=== PATIENT | male | born 1975 | race Caucasian/White ===

== ENCOUNTER 2018-10-19 16:41 | Outpatient (CLI) | payer OTHER | END 2018-10-19 16:42 | disposition critical access hospital (66) | LOC: EMS 16:41 | PROVIDERS: ATTEND Surgery | DX: M54.5 Low back pain (principal); V89.2XXA Person injured in unspecified motor-vehicle accident, traffic, initial encounter; Y92.413 State road as the place of occurrence of the external cause | CPT/HCPCS: A0425; A0429 ==

== ENCOUNTER 2018-10-19 17:13 | Emergency (ER) | payer OTHER ==
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
[2018-10-19] MEDS ORDERED: HYDROcod/ACETAM 5/325 MG TABLET PO STA (17:55)
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
[2018-10-19] MEDS ORDERED: HYDROcod/ACET 5/325 Prepack 4 PO STA (19:27)
[2018-10-19 19:45] VITALS: BP 151/87
== END 2018-10-19 19:56 | disposition home or self-care (01) ==
LOC: EDUNIT# → ED 17:13
DX: S32.019A Unspecified fracture of first lumbar vertebra, initial encounter for closed fracture (principal); V59.40XA Driver of pick-up truck or van injured in collision with unspecified motor vehicles in traffic accident, initial encounter; R03.0 Elevated blood-pressure reading, without diagnosis of hypertension
CPT/HCPCS: 72100; 72125; 72128; 72131; 99283; A9270

== ENCOUNTER 2019-11-27 14:03 | Outpatient (CLI) | payer OTHER ==
[2019-11-27] MEDS ORDERED: IOVERSOL 320 100 ML VIAL IVP ONE ×2 (14:15→16:28)
[2019-11-27] MEDS ORDERED: IOVERSOL 320 50 ML VIAL ONE (14:15)
[2019-11-27] MEDS ORDERED: IOVERSOL 320 50 ML VIAL PO ONE (16:28)
--- NOTE | 2019-11-28 10:22 | CT Report ---
Reason: HEPATOMEGALY, JAUNDICE Procedure Date: 11/27/2019 Accession Number: [id number] / [id number] Procedure: CT - Abdomen/Pelvis W CPT Code: Final Report FULL RESULT: EXAM: CT ABDOMEN AND PELVIS EXAM DATE: 11/27/2019 03:50 PM. CLINICAL HISTORY: Hepatomegaly, jaundice. COMPARISONS: None. TECHNIQUE: Routine helical CT imaging was performed through the abdomen and pelvis. IV contrast: 100 mL OPTIRAY 320. Enteric contrast: Yes. Reconstructions: Coronal and sagittal. In accordance with CT protocol optimization, one or more of the following dose reduction techniques were utilized for this exam: automated exposure control, adjustment of mA and/or KV based on patient size, or use of iterative reconstructive technique. FINDINGS: Lung Bases: Lung bases appear clear. Moderate cardiomegaly. Liver: Enlarged, measuring 24.4 cm in length. Lobulated contour. Timing of the IV bolus is suboptimal. There is a very subtle mass at the anterior inferior right hepatic lobe indicated, measuring up to 3.9 x 2.5 x 7.4 cm. Series 3 image 49 and series 5 image 18. No discrete hepatic mass is detected elsewhere. The liver could be further evaluated by MRI. The portal vein is patent. There has been revascularization of the umbilical vein. Gallbladder/Bile Ducts: Significant circumferential mural thickening of the nondilated gallbladder wall. No intrahepatic or extrahepatic biliary ductal dilatation detected. Spleen: Enlarged, measuring 15.7 cm in length. Pancreas: No focal masses or ductal dilatation. Adrenal Glands: Normal. Kidneys: Normal. No masses or hydronephrosis. Peritoneal Cavity/Bowel: Normal. No free fluid, free air or adenopathy. No masses or acute inflammatory process. The appendix is well visualized and normal. Pelvic Organs: Normal. The bladder and visualized pelvic organs are within normal limits. Vasculature: Recannulization of the umbilical vein. Development of varices anterior and medial to the spleen. No gastric varices identified. Varix formation also seen just caudal to the gallbladder fossa. Bones: No discrete lytic or blastic lesions detected. There is a grade 1 compression fracture at the superior endplate of L1, possibly nonacute. Other: None. IMPRESSION: 1. Suspected mass at the inferior tip of the liver not well demarcated on current study due to the timing of the IV bolus. Significant mural thickening of the gallbladder. Enlarged and lobulated liver and splenomegaly. Varix formation and recannulization of the umbilical vein consistent with cirrhotic changes in developing portal venous hypertension. No ascites is identified on current study. Follow-up abdominal MRI with MRCP may be helpful for further evaluation. AHSAN
== END 2019-11-27 14:04 | disposition home or self-care (01) ==
LOC: DI 14:03
PROVIDERS: ATTEND Physician Assistant
DX: R16.2 Hepatomegaly with splenomegaly, not elsewhere classified (principal); R17 Unspecified jaundice
CPT/HCPCS: 74177; Q9967

== ENCOUNTER 2020-07-20 12:36 | Outpatient (CLI) | payer BC ==
--- NOTE | 2020-07-20 17:40 | Ultrasound Report ---
PROCEDURE: Abdomen Complete INDICATIONS: EDEMA,CIRRHOSIS OF LIVER,HEPATOMEGALY,SPLENOMEGALY TECHNIQUE: Real-time scanning was performed of the abdominal and retroperitoneal organs, with image documentatio n. COMPARISON: CT dated 11/27/2019. FINDINGS: Study limited secondary to patient scanning characteristics and excessive overlying bowel gas. Liver: Liver is mildly enlarged in size with heterogeneous, coarse echotexture and nodular liver con tour. There are 2 isoechoic liver masses identified. One is noted in the inferior aspect of the right hepatic lobe measuring 4.2 x 5.9 x 5.1 cm. A second isoechoic mass is noted more posteriorly and inf eriorly within the right hepatic lobe measuring 2.9 x 2.3 x 2.6 cm. Gallbladder: Gallbladder contains nonobstructing gallstones. No gallbladder wall thickening. No peric holecystic fluid. Negative sonographic Khalil's. Biliary ducts: Intrahepatic bile ducts are non-dilated. Extrahepatic bile duct caliber measures 9 m m. Normal is 6-7 mm or less in diameter, or 10 mm or less post-cholecystectomy. Pancreas: Limited visualization of the pancreas secondary to bowel gas. Visualized portions demonstra te mild coarse, heterogeneous echotexture. Spleen: Spleen is enlarged measuring 14.8 cm in the maximum dimension. Kidneys: Kidneys are normal in size and echotexture. Right kidney measures 11.5 cm long; left kidne y measures 11.5 cm long. No hydronephrosis or nephrolithiasis. Incidental note of column of Paco. Simple left renal cyst measuring 1.9 cm. No solid masses. Aorta: Visualized aorta is normal in caliber at less than 3 cm. Iliacs: Not well visualized secondary to bowel gas. IVC: Intrahepatic inferior vena cava is patent. Miscellaneous: Scattered ascites throughout the abdomen. Right pleural effusion. Possible left pleura l effusion. IMPRESSION: 1. Hepatosplenomegaly with findings consistent with cirrhosis. There are 2 right hepatic lobe isoecho ic masses measuring 5.9 cm and 2.9 cm respectively. Further characterization with multiphasic contras t enhanced CT or MRI is recommended using liver mass protocol. 2. Scattered ascites, right pleural effusion, and likely left pleural effusion. 3. Cholelithiasis without sonographic evidence for acute cholecystitis. Reviewed by: Giovanni Sam MD on 07/20/2020 5:38 PM PDT Approved by: Giovanni Sam MD on 07/20/2020 5:38 PM PDT Station ID: [id number]
== END 2020-07-20 12:37 | disposition home or self-care (01) ==
LOC: DI 12:36
PROVIDERS: ATTEND Physician Assistant
DX: R60.1 Generalized edema (principal); K74.60 Unspecified cirrhosis of liver; R16.0 Hepatomegaly, not elsewhere classified; R16.1 Splenomegaly, not elsewhere classified; R18.8 Other ascites; K80.20 Calculus of gallbladder without cholecystitis without obstruction; J90 Pleural effusion, not elsewhere classified
CPT/HCPCS: 76700

== ENCOUNTER 2020-07-24 04:21 | Outpatient (CLI) | payer BC | END 2020-07-24 04:22 | disposition critical access hospital (66) | LOC: EMS 04:21 | PROVIDERS: ATTEND Surgery | DX: R50.9 Fever, unspecified (principal) | CPT/HCPCS: A0425; A0429 ==

== ENCOUNTER 2020-07-24 04:40 | Emergency (ER) | payer BC, OTHER ==
--- NOTE | 2020-07-24 04:56 | ED Physician Documentation ---
PD HPI FEVER - Stated complaint Stated Complaint: FEVER, SHIVERING, SOA - Chief complaint Chief Complaint: Fever - History obtained from History obtained from: Patient, EMS - History of Present Illness Timing - onset: Today Pain level max: 0 Pain level now: 0 Associated symptoms: Chills. No: Rigors, Ear pain, Nasal congestion, Rhinorrhea, Sinus pain, Sore throat, Dry cough, Productive cough, Chest pain, Dyspnea, Abdominal pain, NVD, Urinary symptoms, Rash/skin lesion Similar symptoms before: Has not had sx before Recently seen: Not recently seen - Additional information Additional information: BIBA. Patient says he was leaving work this evening when he developed shaking chills. He says he felt so cold that he called family at home ahead of time to have them turn on the heat, and when he got home he put several blankets on. He continued to feel as if he was so cold that he couldn't get warm and called 911. EMS report that they recorded a PO temperature of 105. 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 Patient denies any symptoms except for as noted above. Review of Systems Constitutional: reports: Fever, Chills. denies: Myalgias, Fatigue, Sweats Eyes: reports: Reviewed and negative Ears: reports: Reviewed and negative Nose: reports: Reviewed and negative Throat: reports: Reviewed and negative Cardiac: reports: Reviewed and negative Respiratory: reports: Reviewed and negative GI: denies: Abdominal Pain, Abdominal Swelling, Nausea, Vomiting, Constipation, Diarrhea : denies: Dysuria, Frequency Skin: denies: Rash Musculoskeletal: denies: Neck pain, Back pain, Joint pain Neurologic: denies: Generalized weakness, Confused, Altered mental status, Headache PD PAST MEDICAL HISTORY - Past Medical History Cardiovascular: None Respiratory: None Endocrine/Autoimmune: None GI: Cirrhosis (patient is unsure if he has been definitely diagnosed with cirrhosis, says work up is ongoing and further testing scheduled for later this month (upper and lower endoscopy)) : None HEENT: None Psych: None Musculoskeletal: Osteoarthritis Derm: None - Past Surgical History Past Surgical History: Yes Ortho: Arthroscopic surgery - Present Medications Home Medications: Ambulatory Orders Medication Instructions Recorded Confirmed Furosemide [Lasix] 07/24/20 - Allergies Allergies/Adverse Reactions: Allergies Allergy/AdvReac Type Severity Reaction Status Date / Time No Known Drug Allergies Allergy Verified 07/24/20 04:54 - Social History Does the pt smoke?: No Smoking Status: Never smoker Does the pt drink ETOH?: Yes Does the pt have substance abuse?: No - Immunizations Immunizations: No immun - POLST Patient has POLST: No PD ED PE NORMAL - Vitals Vital signs reviewed: Yes - General General: Alert and oriented X 3, No acute distress, Well developed/nourished - HEENT HEENT: PERRL, EOMI, Moist mucous membranes, Pharynx benign, Other (icteric sclera) - Neck Neck: Supple, no meningeal sign - Cardiac Cardiac: RRR, No murmur, No gallop, No rub - Respiratory Respiratory: No respiratory distress, Clear bilaterally - Abdomen Abdomen: Soft, Non tender, Non distended - Back Back: No CVA TTP - Derm Derm: Warm and dry, Other (mild/faint jaundice) - Extremities Extremities: Other (BLE edema) - Neuro Neuro: Alert and oriented X 3 Eye Opening: Spontaneous Motor: Obeys Commands Verbal: Oriented GCS Score: 15 Results - Vitals Vitals: Vital Signs - 24 hr 07/24/20 07/24/20 08:00 08:30 Temperature 37.4 C Heart Rate 83 79 Respiratory 20 18 Rate Blood Pressure 95/51 L 93/51 L O2 Saturation 96 97 Oxygen O2 Source Room air - Labs Labs: Microbiology 07/24/20 04:58 Blood Culture - Preliminary Blood NO GROWTH AFTER 1 DAY 07/24/20 06:30 Occult Blood - Final Stool Laboratory Tests 07/24/20 07/24/20 07/24/20 04:55 04:58 04:58 WBC 14.2 H RBC 2.68 L Hgb 7.8 L Hct 25.2 L MCV 94.0 MCH 29.1 MCHC 31.0 L RDW 17.2 H Plt Count 142 MPV 10.0 Neut # (Auto) 12.5 H Lymph # (Auto) 0.6 L Chaves # (Auto) 0.8 Eos # (Auto) 0.2 Baso # (Auto) 0.1 Absolute Nucleated RBC 0.00 Nucleated RBC % 0.0 PT 27.0 H INR 2.6 H APTT 45.3 H Sodium Potassium Chloride Carbon Dioxide Anion Gap BUN Creatinine Estimated GFR (MDRD) Glucose Lactic Acid Calcium Total Bilirubin AST ALT Alkaline Phosphatase B-Natriuretic Peptide Total Protein Albumin Globulin Albumin/Globulin Ratio Lipase Urine Color Urine Clarity Urine pH Ur Specific Clements Urine Protein Urine Glucose (UA) Urine Ketones Urine Occult Blood Urine Nitrite Urine Bilirubin Urine Urobilinogen Ur Leukocyte Esterase Ur Microscopic Review Urine Culture Comments Influenza A (Rapid) Negative Influenza B (Rapid) Negative 07/24/20 07/24/20 07/24/20 04:58 04:58 05:02 WBC RBC Hgb Hct MCV MCH MCHC RDW Plt Count MPV Neut # (Auto) Lymph # (Auto) Chaves # (Auto) Eos # (Auto) Baso # (Auto) Absolute Nucleated RBC Nucleated RBC % PT INR APTT Sodium 131 L Potassium 4.2 Chloride 101 Carbon Dioxide 20 L Anion Gap 10.0 BUN 12 Creatinine 0.8 Estimated GFR (MDRD) 104 Glucose 112 H Lactic Acid 1.5 Calcium 9.2 Total Bilirubin 7.4 H AST 65 H ALT 39 Alkaline Phosphatase 163 H B-Natriuretic Peptide 267 H Total Protein 6.3 L Albumin 3.5 Globulin 2.8 Albumin/Globulin Ratio 1.3 Lipase 61 H Urine Color Urine Clarity Urine pH Ur Specific Clements Urine Protein Urine Glucose (UA) Urine Ketones Urine Occult Blood Urine Nitrite Urine Bilirubin Urine Urobilinogen Ur Leukocyte Esterase Ur Microscopic Review Urine Culture Comments Influenza A (Rapid) Influenza B (Rapid) 07/24/20 07:18 WBC RBC Hgb Hct MCV MCH MCHC RDW Plt Count MPV Neut # (Auto) Lymph # (Auto) Chaves # (Auto) Eos # (Auto) Baso # (Auto) Absolute Nucleated RBC Nucleated RBC % PT INR APTT Sodium Potassium Chloride Carbon Dioxide Anion Gap BUN Creatinine Estimated GFR (MDRD) Glucose Lactic Acid Calcium Total Bilirubin AST ALT Alkaline Phosphatase B-Natriuretic Peptide Total Protein Albumin Globulin Albumin/Globulin Ratio Lipase Urine Color DARK YELLOW Urine Clarity CLEAR Urine pH 8.0 H Ur Specific Clements 1.020 Urine Protein NEGATIVE Urine Glucose (UA) NEGATIVE Urine Ketones NEGATIVE Urine Occult Blood NEGATIVE Urine Nitrite NEGATIVE Urine Bilirubin NEGATIVE Urine Urobilinogen 1 (NORMAL) Ur Leukocyte Esterase NEGATIVE Ur Microscopic Review NOT INDICATED Urine Culture Comments NOT INDICATED Influenza A (Rapid) Influenza B (Rapid) - Rads (name of study) chest xray Radiology: Prelim report reviewed, See rad report PD MEDICAL DECISION MAKING - ED course Complexity details: reviewed old records, reviewed results, re-evaluated patient, considered differential, d/w patient ED course: despite fever, patient is in NAD. He is awake, alert, smiling, conversant, and he denies having any symptoms aside from shaking chills and sensation (earlier) of not being able to get warm. Anemia noted on blood tests, and patient says he is unaware of having been told he is anemic. He says his blood tests have been performed out of a clinic on the [place] [facility], and thus I do not have access to these results at this time. He is jaundice with icteric sclera, elevated bilirubin; he says this is not a new finding, although he is not certain as to diagnosis. He initially says he has liver cysts, but when I ask him if he has cirrhosis, he seems to think this might be his diagnosis. He says his gatroenterologist works out of [facility]. I was able to get records from [facility] comprised of an H+P dictated by a gathering machine setter. This note references blood tests that were apparently performed in November and there are no indications of more recent blood tests nor does [facility] have any blood test results available to them when we call back and specifically request. The H+P indicates bilirubin in 5-6 range (in November), but does not mention h/h nor h/o anemia. Patient denies recent blood in stool or dark/tarry stool, and his guaiac is negative; suspect anemia is not acute given guaiac negative and no symptoms attributable to acute anemia (denies fatigue, dyspnea). Lactate is within normal limits. Mild leukocytosis noted. CXR initial reading by radiologist is "irregular nodular density left upper lung zone. focal pneumonia, suspicious nodule, focal atelectasis, or summation artifact within the differential". However, patient repeatedly denies respiratory c/o such as dyspnea, cough; he has clear breath sounds. Thus antibiotics not given for this reading. I note that the subsequent final reading is "no acute cardiopulmonary process is seen". patient defervesced with ibuprofen and is comfortable with d/c home. Departure - Departure Disposition: 01 Home, Self Care Clinical Impression: Fever Qualifiers: Fever type: unspecified Qualified Code(s): R50.9 - Fever, unspecified Condition: Good Instructions: ED Fever Unconf Cause, COVID-19 [facility], COVID-19 [facility] Department Statement Follow-Up: Cyndee Monterroso PA [Primary Care Provider] - Discharge Date/Time: 07/24/20 08:47
[2020-07-24 05:11] LABS: BASOPHILS # (AUTO) 0.1 10^3/uL (0.0-0.1); BASOPHILS % (AUTO) 0.4 %; EOSINOPHILS # (AUTO) 0.2 10^3/uL (0.0-0.7); EOSINOPHILS % (AUTO) 1.1 %; HGB - HEMOGLOBIN 7.8 g/dL (14.0-18.0); LYMPHOCYTES # (AUTO) 0.6 10^3/uL (1.5-3.5); LYMPHOCYTES % (AUTO) 3.9 %; MEAN CORPUSCULAR HEMOGLOBIN 29.1 pg (27.0-31.0); MONOCYTES # (AUTO) 0.8 10^3/uL (0.0-1.0); MONOCYTES % (AUTO) 5.7 %; NEUTROPHILS # (AUTO) 12.5 10^3/uL (1.5-6.6); NEUTROPHILS % (AUTO) 88.5 %; PLT - PLATELET COUNT 142 10^3/uL (130-450); RED BLOOD COUNT 2.68 10^6/uL (4.70-6.10); RED CELL DISTRIBUTION WIDTH 17.2 % (12.0-15.0); WHITE BLOOD COUNT 14.2 x10^3/uL (4.8-10.8)
[2020-07-24 05:15] LABS: INR 2.6 (0.8-1.2)
[2020-07-24 05:22] LABS: ALBUMIN 3.5 g/dL (3.2-5.5); ALBUMIN/GLOBULIN RATIO 1.3 (1.0-2.2); BILIRUBIN,TOTAL 7.4 mg/dL (0.2-1.0); CALCIUM 9.2 mg/dL (8.5-10.3); CREATININE 0.8 mg/dL (0.6-1.2); TOTAL PROTEIN 6.3 g/dL (6.7-8.2)
[2020-07-24 05:23] LABS: PARTIAL THROMBOPLASTIN TIME 45.3 secs (24.9-33.3)
[2020-07-24] MEDS ORDERED: IBUPROFEN 400 MG TABLET PO STA (06:32)
[2020-07-24 07:47] LABS: BILIRUBIN,URINE NEGATIVE (NEGATIVE); GLUCOSE, URINE (UA) NEGATIVE (NEGATIVE); KETONES,URINE (UA) NEGATIVE (NEGATIVE); LEUKOCYTE ESTERASE, URINE NEGATIVE (NEGATIVE); NITRITE,URINE NEGATIVE (NEGATIVE); OCCULT BLOOD,URINE NEGATIVE (NEGATIVE); PROTEIN,URINE NEGATIVE (NEGATIVE); UROBILINOGEN,URINE 1 (NORMAL) E.U./dL (NORMAL)
[2020-07-24 07:51] LABS: CLARITY,URINE CLEAR (CLEAR)
--- NOTE | 2020-07-24 08:18 | XRAY Report ---
PROCEDURE: Chest 1 View X-Ray INDICATIONS: dyspnea TECHNIQUE: One view of the chest was acquired. COMPARISON: Correlation is made with thoracic spine CT 10/19/2018. FINDINGS: Surgical changes and devices: None. Lungs and pleura: No pleural effusions or pneumothorax. Lungs are clear. Mediastinum: Mediastinal contours appear normal. Heart size is normal. Bones and chest wall: No suspicious bony lesions. Overlying soft tissues appear unremarkable. IMPRESSION: No acute cardiopulmonary process is seen. Reviewed by: Jesús Hines MD on 07/24/2020 7:17 AM AMA Approved by: Jesús Hines MD on 07/24/2020 7:17 AM AMA Station ID: [id number]
[2020-07-24 08:30] VITALS: BP 93/51
== END 2020-07-24 08:47 | disposition home or self-care (01) ==
LOC: EDUNIT# → ED 04:40
DX: R50.9 Fever, unspecified (principal); D64.9 Anemia, unspecified; R17 Unspecified jaundice; Z20.828 Contact with and (suspected) exposure to other viral communicable diseases
CPT/HCPCS: 36415; 71045; 80053; 81003; 82272; 83605; 83690; 83880; 85025; 85610; 85730; 87040; 87275; 87276; 87635; 99284; A9270; 81001; 87086

== ENCOUNTER 2020-08-02 14:50 | Outpatient (CLI) | payer OTHER | END 2020-08-02 14:51 | disposition home or self-care (01) | LOC: COV 14:50 | PROVIDERS: ATTEND Internal Medicine Gastroenterology | DX: K70.31 Alcoholic cirrhosis of liver with ascites (principal); I10 Essential (primary) hypertension; Z20.828 Contact with and (suspected) exposure to other viral communicable diseases ==

== ENCOUNTER 2020-08-16 12:57 | Outpatient (CLI) | payer BC ==
[2020-08-16] MEDS ORDERED: GADOBUTROL 15 MMOL/15 ML VIAL ONE (13:28)
[2020-08-16] MEDS ORDERED: GADOBUTROL 15 MMOL/15 ML VIAL IVP ONE (13:55)
--- NOTE | 2020-08-16 15:33 | MRI Report ---
PROCEDURE: Abdomen W/WO INDICATIONS: MASSES ON LIVER, ABN IMAGING CONTRAST: IV CONTRAST: Gadavist ml: 10.5 TECHNIQUE: Coronal ultra fast SE, axial 2D spoiled GE in- and [id number]; axial breath-hold T2 fast SE. Dynam ic axial ultra fast GE during the administration of contrast; post-contrast coronal ultra fast GE or 2D spoiled GE with fat saturation from the hepatic dome to the iliac crests. Optional diffusion weig hted imaging and ADC may be performed. COMPARISON: Prior CT abdomen/pelvis 11/27/2019 FINDINGS: Image quality: Significantly degraded by persistent patient motion during image acquisition. Lung bases: No basal pleural effusions. Heart size is normal. Solid organs: Liver and spleen are difficult to accurately assess due to patient motion during image acquisition. The spleen is enlarged at 15 cm craniocaudad, the liver is enlarged at up to 21 cm cran iocaudad. The spleen appears normal in enhancement. The liver is heterogeneous in its contrast enhan cement, with image 14 and image 32 the pattern of mild heterogeneity of contrast enhancement reduces which may indicate absence of fatty infiltration within those particular areas of the liver and heter ogeneous fatty infiltration elsewhere. There is a subtle rounded area of increased enhancement within the right posterior hepatic segment seen on image 37. On delayed imaging there is no acceleration of "washout" in these areas or pseudocapsule enhancement along the borders. Gallbladder appears normal Biliary system is non dilated. Pancreas is normal in morphology. No adr enal nodules. Both kidneys demonstrate normal size and enhancement, without hydronephrosis. Nodes and vessels: No retroperitoneal or mesenteric adenopathy by size criteria. Aorta and inferior vena cava are normal in size. Note is made of omental and periumbilical varices and also relatively prominent splenic hilar vessels. Early portal hypertension is considered likely present. Bowel and peritoneum: Unenhanced bowel loops are normal in caliber. No free fluid. Bones and soft tissues: No ventral hernias. Bone marrow is normal in overall signal. IMPRESSION: The study is significantly compromised by patient motion during image acquisition. The appearance abner ws evidence of cirrhosis and hepatosplenomegaly, and also heterogeneous fatty infiltration. Fine qual ity detail of areas of heterogeneous enhancement within the gallbladder fossa hepatic margins and als o the right subcapsular posterior hepatic segment is limited. MR scanning is optimal if the patient c an't suspend respiration and cooperate fully with the study. Follow-up ultrasound scanning is recommended in 3-6 months. Thereafter if advanced imaging is necessa ry CT scanning would be recommended over MR scanning for this patient. Given the pattern of cirrhotic change present serum alpha-fetoprotein value would be potentially beneficial. Hepatocellular carcino ma is not definitively present by this study but is a potential significant risk. Reviewed by: Cody Meraz MD on 08/16/2020 3:32 PM PST Approved by: Cody Meraz MD on 08/16/2020 3:32 PM PST Station ID: [id number]
== END 2020-08-16 12:58 | disposition home or self-care (01) ==
LOC: DI 12:57
PROVIDERS: ATTEND Physician Assistant
DX: K74.60 Unspecified cirrhosis of liver (principal); R16.2 Hepatomegaly with splenomegaly, not elsewhere classified; K76.0 Fatty (change of) liver, not elsewhere classified
CPT/HCPCS: 74183; A9585

== ENCOUNTER 2020-12-10 17:00 | Outpatient (CLI) | payer OTHER | END 2020-12-10 17:01 | disposition home or self-care (01) | LOC: COV 17:00 | PROVIDERS: ATTEND Family Medicine | DX: R50.9 Fever, unspecified (principal); M79.10 Myalgia, unspecified site; R19.7 Diarrhea, unspecified; J34.89 Other specified disorders of nose and nasal sinuses; R11.0 Nausea; Z20.822 Contact with and (suspected) exposure to COVID-19 ==

== ENCOUNTER 2020-12-17 06:29 | Outpatient (CLI) | payer OTHER | END 2020-12-17 06:30 | disposition critical access hospital (66) | LOC: EMS 06:29 | PROVIDERS: ATTEND Emergency Medicine | DX: R41.82 Altered mental status, unspecified (principal) | CPT/HCPCS: A0425; A0427 ==

== ENCOUNTER 2020-12-17 06:44 | Emergency (ER) | payer OTHER ==
[2020-12-17] MEDS ORDERED: FOLIC ACID INJ 1 MG, THIAMINE INJ 100 MG, MAGNESIUM SULFATE 2 GM, MULTIVITAMIN 10 ML in... IV STA ×5 (06:54)
[2020-12-17 07:13] LABS: BASOPHILS % (AUTO) 0.3 %; EOSINOPHILS % (AUTO) 0.2 %; MEAN CORPUSCULAR HEMOGLOBIN 36.6 pg (27.0-31.0); MEAN CORPUSCULAR VOLUME 135.4 fL (80.0-94.0); MEAN PLATELET VOLUME 12.5 fL (7.4-11.4); MONOCYTES % (AUTO) 14.9 %; RED BLOOD COUNT 0.82 10^6/uL (4.70-6.10); RED CELL DISTRIBUTION WIDTH 24.3 % (12.0-15.0)
[2020-12-17 07:20] LABS: WHITE BLOOD COUNT 49.7 x10^3/uL (4.8-10.8)
[2020-12-17 07:21] LABS: HCT - HEMATOCRIT 11.1 % (42.0-52.0); PLT - PLATELET COUNT 89 10^3/uL (130-450)
[2020-12-17 07:23] LABS: ABNORMAL LYMPHS % (MANUAL) 0 %
[2020-12-17 07:25] LABS: VBG HCO3 3.7 mmol/L (23-28); VBG PCO2 12.8 mmHg (41-51); VBG PH 7.077 (7.31-7.41)
[2020-12-17 07:26] LABS: VBG OXYGEN SATURATION 87.8 % (60-80); VBG TOTAL CO2 4.1 mmol/L (24-29)
[2020-12-17] MEDS ORDERED: cefTRIAXone 1 GM VIAL IVP STA (07:27)
[2020-12-17 07:29] LABS: ALBUMIN/GLOBULIN RATIO 1.1 (1.0-2.2); ALKALINE PHOSPHATASE 420 IU/L (42-121); ALT ALANINE AMINOTRANSFERASE 62 IU/L (10-60); AST ASPARTATE AMINOTRANSFERASE 210 IU/L (10-42); CALCIUM 7.5 mg/dL (8.5-10.3); CHLORIDE 99 mmol/L (101-111); CK- CREATINE KINASE 260 IU/L (22-269); CREATININE 2.3 mg/dL (0.6-1.2); ETOH - ETHANOL < 5.0 mg/dL; GFR - MDRD 31 (>89); GLUCOSE 107 mg/dL (70-100); LIPASE 265 U/L (22-51); SODIUM 132 mmol/L (135-145); TOTAL PROTEIN 3.9 g/dL (6.7-8.2)
[2020-12-17] MEDS ORDERED: SODIUM CHLORIDE 0.9% 1,000 ML IV STA ×3 (07:33→09:10)
--- NOTE | 2020-12-17 07:39 | ED Physician Documentation ---
History of Present Illness - Stated complaint Stated Complaint: ALOC - Chief complaint Chief Complaint: Neuro - History obtained from History obtained from: Patient - History of Present Illness Timing: Today Pain level max: 0 Pain level now: 0 - Additonal information Additional information: Patient is a 45-year-old male with a history of liver cirrhosis. Apparently the patient has been weak since last night and was sitting on the commode all night. This morning he could not stand up and was difficult to arouse. His primary care provider is in [place]. According to his mother he does not have a liver doctor. The patient has a history of alcoholism. Unknown if he has varices or not. No vomiting that she is aware of. Nothing makes it better or worse. Review of Systems Unable to obtain: Unresponsive, AMS PD PAST MEDICAL HISTORY - Past Medical History Cardiovascular: None Respiratory: None Neuro: None Endocrine/Autoimmune: None GI: Cirrhosis (patient is unsure if he has been definitely diagnosed with cirrhosis, says work up is ongoing and further testing scheduled for later this month (upper and lower endoscopy)) : None HEENT: None Psych: None Musculoskeletal: Osteoarthritis Derm: None - Past Surgical History Past Surgical History: Yes Ortho: Arthroscopic surgery - Present Medications Home Medications: Ambulatory Orders Medication Instructions Recorded Confirmed Furosemide [Lasix] 07/24/20 - Allergies Allergies/Adverse Reactions: Allergies Allergy/AdvReac Type Severity Reaction Status Date / Time No Known Drug Allergies Allergy Verified 12/17/20 06:51 - Social History Does the pt smoke?: No Smoking Status: Never smoker Does the pt drink ETOH?: Yes Does the pt have substance abuse?: No - Immunizations Immunizations are current?: No Immunizations: No immun - POLST Patient has POLST: No PD ED PE NORMAL - Vitals Vital signs reviewed: Yes - General General: Other (somnolent, difficult to arouse) - HEENT HEENT: PERRL, Other (pale, jaundiced) - Neck Neck: Supple, no meningeal sign - Cardiac Cardiac: RRR - Respiratory Respiratory: No respiratory distress, Clear bilaterally - Abdomen Abdomen: Soft, Non tender, Non distended - Rectal Rectal: Other (melena, Hemoccult positive) - Back Back: No CVA TTP, No spinal TTP - Derm Derm: Warm and dry - Extremities Extremities: Other (1+ B LE edema) - Neuro Neuro: Other (sonorous) Eye Opening: Spontaneous Motor: Withdraws to Pain Verbal: Incomprehensible GCS Score: 10 Results - Vitals Vitals: Vital Signs - 24 hr 12/17/20 12/17/20 12/17/20 06:51 06:55 07:03 Temperature 35.5 C L 35.5 C L 35.5 C L Heart Rate 74 70 75 Respiratory 32 H 33 H 32 H Rate Blood Pressure 101/38 L 101/38 L 82/65 L O2 Saturation 98 97 98 12/17/20 12/17/20 12/17/20 07:09 07:18 07:25 Temperature 35.5 C L 35.5 C L 35.5 C L Heart Rate 72 77 69 Respiratory 33 H 27 H 30 H Rate Blood Pressure 87/74 L 148/67 H 93/38 L O2 Saturation 97 95 92 12/17/20 12/17/20 12/17/20 07:30 07:59 08:05 Temperature 31.9 C L 31.9 C L Heart Rate 76 71 73 Respiratory 30 H 30 H 30 H Rate Blood Pressure 127/106 H 117/46 L 144/95 H O2 Saturation 95 94 95 12/17/20 12/17/20 12/17/20 08:15 08:25 08:33 Temperature 32.2 C L 32.3 C L 32.4 C L Heart Rate 75 75 76 Respiratory 32 H 30 H 30 H Rate Blood Pressure 149/109 H 109/56 L 90/56 L O2 Saturation 100 100 100 12/17/20 12/17/20 12/17/20 09:00 09:04 09:30 Temperature 32.8 C L 32.9 C L 33.1 C L Heart Rate 78 80 77 Respiratory 30 H 30 H 30 H Rate Blood Pressure 100/56 L 101/56 L 108/60 O2 Saturation 99 99 100 Oxygen O2 Source Room air - EKG (time done) 0649 Rate: Rate (enter#) (72) Rhythm: NSR [place]: Normal Intervals: Normal [place], Wide QRS Ischemia: ST depression (V4-6) - Labs Labs: Laboratory Tests 12/17/20 12/17/20 12/17/20 06:50 06:56 06:56 WBC 49.7 H* RBC 0.82 L Hgb 3.0 L* Hct 11.1 L* MCV 135.4 H MCH 36.6 H MCHC 27.0 L RDW 24.3 H Plt Count 89 L MPV 12.5 H Neut # (Auto) Not Reportable Lymph # (Auto) Not Reportable [place] # (Auto) Not Reportable Eos # (Auto) Not Reportable Baso # (Auto) Not Reportable Absolute Nucleated RBC Not Reportable Total Counted 100 Band Neuts % (Manual) 1 Abnorm Lymph % (Manual) 0 Metamyelocytes % 1 H Myelocytes % 1 H Nucleated RBC % Not Reportable Neutrophils # (Manual) 39.8 H Lymphocytes # (Manual) 6.0 H Monocytes # (Manual) 3.0 H Eosinophils # (Manual) 0.0 Basophils # (Manual) 0.0 Nucleated RBCs 6 Differential Comment MANUAL DIFFERENTIAL WBC Morphology 2+ VACUOLATION Platelet Estimate DECREASED (<130,000) Platelet Morphology 1+ GIANT PLATELETS RBC Morph Micro Appear 1+ SCHISTOCYTES PT INR APTT VBG pH VBG pCO2 VBG pO2 VBG HCO3 VBG Total CO2 VBG O2 Saturation VBG Base Excess Sodium 132 L Potassium 6.3 H* Chloride 99 L Carbon Dioxide < 6 L* Anion Gap 27.0 H BUN 82 H* Creatinine 2.3 H Estimated GFR (MDRD) 31 L Glucose 107 H Lactic Acid Calcium 7.5 L Total Bilirubin 11.0 H AST 210 H ALT 62 H Alkaline Phosphatase 420 H Ammonia Total Creatine Kinase 260 CK-MB (CK-2) Total Protein 3.9 L Albumin 2.0 L Globulin 1.9 L Albumin/Globulin Ratio 1.1 Lipase 265 H Urine Color Urine Clarity Urine pH Ur Specific [place] Urine Protein Urine Glucose (UA) Urine Ketones Urine Occult Blood Urine Nitrite Urine Bilirubin Urine Urobilinogen Ur Leukocyte Esterase Urine RBC Urine WBC Ur Squamous Epith Cells Urine Bacteria Urine Casts Urine Mucus Ur Microscopic Review Urine Culture Comments Nasal Adenovirus (PCR) Nasal B. parapertussis DNA (PCR) Nasal Coronavir 229E PCR Nasal Coronavir HKU1 PCR Nasal Coronavir NL63 PCR Nasal Coronavir OC43 PCR Nasal Enterovir/Rhinovir PCR Nasal Influenza B PCR Nasal Influenza A PCR Nasal Parainfluen 1 PCR Nasal Parainfluen 2 PCR Nasal Parainfluen 3 PCR Nasal Parainfluen 4 PCR Nasal RSV (PCR) Nasal B.pertussis DNA PCR Nasal C.pneumoniae (PCR) Isaías Human Metapneumo PCR Nasal M.pneumoniae (PCR) Nasal SARS-CoV-2 (PCR) Ethyl Alcohol < 5.0 Blood Type A NEGATIVE Blood Type Recheck Antibody Screen NEGATIVE Crossmatch IS Only See Detail 12/17/20 12/17/20 12/17/20 06:56 07:17 07:17 WBC RBC Hgb Hct MCV MCH MCHC RDW Plt Count MPV Neut # (Auto) Lymph # (Auto) [place] # (Auto) Eos # (Auto) Baso # (Auto) Absolute Nucleated RBC Total Counted Band Neuts % (Manual) Abnorm Lymph % (Manual) Metamyelocytes % Myelocytes % Nucleated RBC % Neutrophils # (Manual) Lymphocytes # (Manual) Monocytes # (Manual) Eosinophils # (Manual) Basophils # (Manual) Nucleated RBCs Differential Comment WBC Morphology Platelet Estimate Platelet Morphology RBC Morph Micro Appear PT INR APTT VBG pH VBG pCO2 VBG pO2 VBG HCO3 VBG Total CO2 VBG O2 Saturation VBG Base Excess Sodium Potassium Chloride Carbon Dioxide Anion Gap BUN Creatinine Estimated GFR (MDRD) Glucose Lactic Acid > 10.0 H* Calcium Total Bilirubin AST ALT Alkaline Phosphatase Ammonia > 180.0 H* Total Creatine Kinase CK-MB (CK-2) 13.4 H Total Protein Albumin Globulin Albumin/Globulin Ratio Lipase Urine Color Urine Clarity Urine pH Ur Specific [place] Urine Protein Urine Glucose (UA) Urine Ketones Urine Occult Blood Urine Nitrite Urine Bilirubin Urine Urobilinogen Ur Leukocyte Esterase Urine RBC Urine WBC Ur Squamous Epith Cells Urine Bacteria Urine Casts Urine Mucus Ur Microscopic Review Urine Culture Comments Nasal Adenovirus (PCR) Nasal B. parapertussis DNA (PCR) Nasal Coronavir 229E PCR Nasal Coronavir HKU1 PCR Nasal Coronavir NL63 PCR Nasal Coronavir OC43 PCR Nasal Enterovir/Rhinovir PCR Nasal Influenza B PCR Nasal Influenza A PCR Nasal Parainfluen 1 PCR Nasal Parainfluen 2 PCR Nasal Parainfluen 3 PCR Nasal Parainfluen 4 PCR Nasal RSV (PCR) Nasal B.pertussis DNA PCR Nasal C.pneumoniae (PCR) Isaías Human Metapneumo PCR Nasal M.pneumoniae (PCR) Nasal SARS-CoV-2 (PCR) Ethyl Alcohol Blood Type Blood Type Recheck Antibody Screen Crossmatch IS Only 12/17/20 12/17/20 12/17/20 07:20 07:23 07:27 WBC RBC Hgb Hct MCV MCH MCHC RDW Plt Count MPV Neut # (Auto) Lymph # (Auto) [place] # (Auto) Eos # (Auto) Baso # (Auto) Absolute Nucleated RBC Total Counted Band Neuts % (Manual) Abnorm Lymph % (Manual) Metamyelocytes % Myelocytes % Nucleated RBC % Neutrophils # (Manual) Lymphocytes # (Manual) Monocytes # (Manual) Eosinophils # (Manual) Basophils # (Manual) Nucleated RBCs Differential Comment WBC Morphology Platelet Estimate Platelet Morphology RBC Morph Micro Appear PT INR APTT VBG pH 7.077 L VBG pCO2 12.8 L VBG pO2 79.0 H VBG HCO3 3.7 L VBG Total CO2 4.1 L VBG O2 Saturation 87.8 H VBG Base Excess -24.0 L Sodium Potassium Chloride Carbon Dioxide Anion Gap BUN Creatinine Estimated GFR (MDRD) Glucose Lactic Acid Calcium Total Bilirubin AST ALT Alkaline Phosphatase Ammonia Total Creatine Kinase CK-MB (CK-2) Total Protein Albumin Globulin Albumin/Globulin Ratio Lipase Urine Color Urine Clarity Urine pH Ur Specific [place] Urine Protein Urine Glucose (UA) Urine Ketones Urine Occult Blood Urine Nitrite Urine Bilirubin Urine Urobilinogen Ur Leukocyte Esterase Urine RBC Urine WBC Ur Squamous Epith Cells Urine Bacteria Urine Casts Urine Mucus Ur Microscopic Review Urine Culture Comments Nasal Adenovirus (PCR) NOT DETECTED Nasal B. parapertussis DNA (PCR) NOT DETECTED Nasal Coronavir 229E PCR NOT DETECTED Nasal Coronavir HKU1 PCR NOT DETECTED Nasal Coronavir NL63 PCR NOT DETECTED Nasal Coronavir OC43 PCR NOT DETECTED Nasal Enterovir/Rhinovir PCR NOT DETECTED Nasal Influenza B PCR NOT DETECTED Nasal Influenza A PCR NOT DETECTED Nasal Parainfluen 1 PCR NOT DETECTED Nasal Parainfluen 2 PCR NOT DETECTED Nasal Parainfluen 3 PCR NOT DETECTED Nasal Parainfluen 4 PCR NOT DETECTED Nasal RSV (PCR) NOT DETECTED Nasal B.pertussis DNA PCR NOT DETECTED Nasal C.pneumoniae (PCR) NOT DETECTED Isaías Human Metapneumo PCR NOT DETECTED Nasal M.pneumoniae (PCR) NOT DETECTED Nasal SARS-CoV-2 (PCR) NOT DETECTED Ethyl Alcohol Blood Type Blood Type Recheck A NEGATIVE Antibody Screen Crossmatch IS Only 12/17/20 12/17/20 07:27 08:53 WBC RBC Hgb Hct MCV MCH MCHC RDW Plt Count MPV Neut # (Auto) Lymph # (Auto) [place] # (Auto) Eos # (Auto) Baso # (Auto) Absolute Nucleated RBC Total Counted Band Neuts % (Manual) Abnorm Lymph % (Manual) Metamyelocytes % Myelocytes % Nucleated RBC % Neutrophils # (Manual) Lymphocytes # (Manual) Monocytes # (Manual) Eosinophils # (Manual) Basophils # (Manual) Nucleated RBCs Differential Comment WBC Morphology Platelet Estimate Platelet Morphology RBC Morph Micro Appear PT 52.2 H INR 5.2 H* APTT 76.6 H VBG pH VBG pCO2 VBG pO2 VBG HCO3 VBG Total CO2 VBG O2 Saturation VBG Base Excess Sodium Potassium Chloride Carbon Dioxide Anion Gap BUN Creatinine Estimated GFR (MDRD) Glucose Lactic Acid Calcium Total Bilirubin AST ALT Alkaline Phosphatase Ammonia Total Creatine Kinase CK-MB (CK-2) Total Protein Albumin Globulin Albumin/Globulin Ratio Lipase Urine Color DARK YELLOW Urine Clarity CLEAR Urine pH 5.5 Ur Specific [place] >=1.030 H Urine Protein NEGATIVE Urine Glucose (UA) NEGATIVE Urine Ketones TRACE Urine Occult Blood SMALL H Urine Nitrite NEGATIVE Urine Bilirubin SMALL H Urine Urobilinogen 2 H Ur Leukocyte Esterase NEGATIVE Urine RBC 0-5 Urine WBC 0-3 Ur Squamous Epith Cells NONE SEEN Urine Bacteria None Seen Urine Casts 3-5 Hyaline Casts Urine Mucus Few Strands Ur Microscopic Review INDICATED Urine Culture Comments NOT INDICATED Nasal Adenovirus (PCR) Nasal B. parapertussis DNA (PCR) Nasal Coronavir 229E PCR Nasal Coronavir HKU1 PCR Nasal Coronavir NL63 PCR Nasal Coronavir OC43 PCR Nasal Enterovir/Rhinovir PCR Nasal Influenza B PCR Nasal Influenza A PCR Nasal Parainfluen 1 PCR Nasal Parainfluen 2 PCR Nasal Parainfluen 3 PCR Nasal Parainfluen 4 PCR Nasal RSV (PCR) Nasal B.pertussis DNA PCR Nasal C.pneumoniae (PCR) Isaías Human Metapneumo PCR Nasal M.pneumoniae (PCR) Nasal SARS-CoV-2 (PCR) Ethyl Alcohol Blood Type Blood Type Recheck Antibody Screen Crossmatch IS Only - Rads (name of study) cxr Radiology: Prelim report reviewed, EMP read contemporaneously, See rad report (Cardiomegaly with increased vascularity suggestive of edema. ) cxr s/p line Radiology: Prelim report reviewed, EMP read contemporaneously, See rad report (1. Right-sided central venous catheter as above. 2. Mild appearance of increased pulmonary vascularity, mildly less prominent, suggestive of edema. ) Procedures - Central Line Central Line Preparation: Unable to obtain consent, Time out completed, Ultrasound used, Sterile prep and drape Central line location: Right IJ Central line type: Triple lumen Central line aftercare: Chlorhexidine disc placed, Secured, Placement confirmed, No pneumothorax, Other (small hematoma at insertion site, pressure held, ice applied.) PD MEDICAL DECISION MAKING - ED course Complexity details: reviewed results, re-evaluated patient, considered diff erential, d/w family, d/w platform consultant ED course: 45-year-old male, critically ill patient. given IVF, packed red cells. rocephin, protonix. Right IJ central catheter was placed. Patient remained a GCS of approximately 10. Blood pressure was between 90 and 110 systolic. He was hypothermic. Warm IV fluids and a bear hugger were placed. Patient will need to be transferred for higher level of care. Discussed the case with Dr. Marcus, ICU at [facility] in [place] who graciously accepts in transfer. Due to his critical condition, patient will be transported via helicopter. COBRA forms completed. This document was made in part using voice recognition software. While efforts are made to proofread this document, sound alike and grammatical errors may occur. - Critical Care Time(min): 50 Time Includes: Direct patient care, Reassess patient, Document care, Coordinate care, See progress note Data interpretation: See progress note Procedures included in critical care time: See progress note Procedures excluded from critical care time: Central IV, EKG, See progress note - Sepsis Event Current Stage of Sepsis: Severe sepsis Possible source of Sepsis: Unknown Mental/Cognitive Status: Lethargic, Change from baseline Reason for not giving 30ml/kg crystalloid fluids: Other (severe anemia, blood given with IVF.) Capillary refill: Less than 2 seconds Peripheral Pulse Strength: 1+ Faint Peripheral Pulse Location: Radial Bedside ultrasound performed: No Departure - Departure Disposition: 02 Transfer Acute Care Hosp Clinical Impression: Melena, Hyperkalemia, Hepatic coma, Multisystem organ failure Anemia Qualifiers: Anemia type: unspecified type Qualified Code(s): D64.9 - Anemia, unspecified Liver failure Qualifiers: Liver failure chronicity: unspecified chronicity Hepatic coma status: with hepatic coma Qualified Code(s): K72.91 - Hepatic failure, unspecified with coma Hypothermia Qualifiers: Encounter type: initial encounter Qualified Code(s): T68.XXXA - Hypothermia, initial encounter Sepsis Qualifiers: Sepsis type: sepsis due to unspecified organism Sepsis acute organ dysfunction status: with acute organ dysfunction Severe sepsis acute organ dysfunction type: unspecified Severe sepsis shock status: unspecified Qualified Code(s): A41.9 - Sepsis, unspecified organism; R65.20 - Severe sepsis without septic shock Condition: Serious Discharge Date/Time: 12/17/20 09:30
[2020-12-17 07:43] LABS: CARBON DIOXIDE - CO2 < 6 mmol/L (21-32); POTASSIUM 6.3 mmol/L (3.5-5.0)
[2020-12-17 07:44] LABS: BUN - BLOOD UREA NITROGEN 82 mg/dL (6-20)
[2020-12-17 07:51] LABS: GLUCOSE, URINE (UA) NEGATIVE (NEGATIVE); KETONES,URINE (UA) TRACE mg/dL (NEGATIVE); LEUKOCYTE ESTERASE, URINE NEGATIVE (NEGATIVE); NITRITE,URINE NEGATIVE (NEGATIVE); OCCULT BLOOD,URINE SMALL (NEGATIVE); PH,URINE 5.5 PH (5.0-7.5); PROTEIN,URINE NEGATIVE (NEGATIVE); UROBILINOGEN,URINE 2 E.U./dL (NORMAL)
[2020-12-17 08:01] LABS: BILIRUBIN,URINE SMALL (NEGATIVE); CLARITY,URINE CLEAR (CLEAR); ICTOTEST,URINE POSITIVE
[2020-12-17 08:22] LABS: B. PARAPERTUSSIS- RESP PCR PAN NOT DETECTED; B. PERTUSSIS- RESP PCR PANEL NOT DETECTED; BACTERIA,URINE None Seen /HPF (None Seen); C. PNEUMONIAE- RESP PCR PANEL NOT DETECTED; CORONAVIRUS 229E-RESP PCR NOT DETECTED; CORONAVIRUS HKU1-RESP PCR NOT DETECTED; CORONAVIRUS NL63-RESP PCR NOT DETECTED; CORONAVIRUS OC43-RESP PCR NOT DETECTED; HUMAN METAPNEUMOVIRUS NOT DETECTED; INFLUENZA A- RESP PCR PANEL NOT DETECTED; INFLUENZA B - RESP PCR PANEL NOT DETECTED; M. PNEUMONIAE- RESP PCR PANEL NOT DETECTED; PARAINFLUENZA VIRUS 1 NOT DETECTED; PARAINFLUENZA VIRUS 2 NOT DETECTED; PARAINFLUENZA VIRUS 3 NOT DETECTED; PARAINFLUENZA VIRUS 4 NOT DETECTED; RBC,URINE 0-5 /HPF (0-5); RHINOVIRUS/ENTEROVIRUS NOT DETECTED; RSV- RESP PCR PANEL NOT DETECTED; SARS-CoV-2 -RESP PCR PANEL NOT DETECTED; SQUAMOUS EPITHELIAL CELL,UR NONE SEEN (<= Few); WBC,URINE 0-3 /HPF (0-3)
[2020-12-17 08:23] LABS: CASTS, URINE 3-5 Hyaline Casts /LPF; MUCUS,URINE Few Strands
[2020-12-17] MEDS ORDERED: ELECTROLYTE-A SOLUTION 1,000 ML IV STA (08:35)
[2020-12-17] MEDS ORDERED: PANTOPRAZOLE 40 MG VIAL IVP STA (08:36)
[2020-12-17] MEDS ORDERED: SODIUM BICARBONATE 100 MEQ in DEXTROSE 5% 1,000 ML IV STA (08:47)
--- NOTE | 2020-12-17 08:58 | XRAY Report ---
PROCEDURE: Chest 1 View X-Ray INDICATIONS: chest pain TECHNIQUE: One view of the chest was acquired. COMPARISON: Chest x-ray 07/24/2020 FINDINGS: Surgical changes and devices: None. Lungs and pleura: No pleural effusions or pneumothorax. Mild increased vascularity. Mediastinum: Mediastinal contours appear normal. Heart size is enlarged. Bones and chest wall: No suspicious bony lesions. Overlying soft tissues appear unremarkable. IMPRESSION: Cardiomegaly with increased vascularity suggestive of edema. Reviewed by: Kaela Najera MD on 12/17/2020 8:57 AM [facility] Approved by: Kalea Najera MD on 12/17/2020 8:57 AM [facility] Station ID: [id number]
[2020-12-17 09:04] LABS: BAND NEUTROPHILS % (MANUAL) 1 %; LYMPHOCYTES % (MANUAL) 12 %; METAMYELOCYTES % (MANUAL) 1 %; MYELOCYTES % (MANUAL) 1 %; NEUTROPHILS # (MANUAL) 39.8 10^3/uL (1.5-6.6); NUCLEATED RBC (MANUAL) 6 %
--- NOTE | 2020-12-17 09:04 | XRAY Report ---
PROCEDURE: Chest for Line Placement INDICATIONS: central placement - RIJ TECHNIQUE: One view of the chest was acquired. COMPARISON: Chest x-ray 12/17/2020 FINDINGS: Surgical changes and devices: There is been interval placement of a right-sided central venous cathet er with distal tip overlying the distal SVC/right atrial junction. Lungs and pleura: No pleural effusions or pneumothorax. There is a persistent appearance of increase d vascularity. Mediastinum: Mediastinal contours appear normal. Heart size is enlarged. Bones and chest wall: No suspicious bony lesions. Overlying soft tissues demonstrate areas of round ed increased radiodensity overlying the right neck and shoulder region. IMPRESSION: 1. Right-sided central venous catheter as above. 2. Mild appearance of increased pulmonary vascularity, mildly less prominent, suggestive of edema. 3. Radiodensities overlying the neck and shoulder as above. This is suspected to be external to the p atient and direct visualization is recommended. Reviewed by: Kaela Najera MD on 12/17/2020 9:03 AM PST Approved by: Kaela Najera MD on 12/17/2020 9:03 AM PST Station ID: [id number]
[2020-12-17 09:06] LABS: PLATELET ESTIMATE, MANUAL DECREASED (<130,000) (NORMAL); PLATELET MORPHOLOGY 1+ GIANT PLATELETS (NORMAL)
[2020-12-17 09:07] LABS: DIFFERENTIAL COMMENT MANUAL DIFFERENTIAL
[2020-12-17] MEDS: ELECTROLYTE-A SOLUTION 1,000 ML IV ONE ×2 (09:08→09:10)
[2020-12-17 09:14] LABS: PT - PROTHROMBIN TIME 52.2 secs (9.9-12.6)
[2020-12-17] MEDS ORDERED: SODIUM BICARBONATE 8.4% 50 MEQ/50 ML VIAL ONE (09:16)
[2020-12-17 09:17] LABS: INR 5.2 (0.8-1.2); PARTIAL THROMBOPLASTIN TIME 76.6 secs (24.9-33.3)
[2020-12-17 09:35] VITALS: BP 108/60
== END 2020-12-17 09:30 | disposition short-term general hospital (02) ==
LOC: EDUNIT# → ED 06:44
DX: A41.9 Sepsis, unspecified organism (principal); R65.20 Severe sepsis without septic shock; K72.91 Hepatic failure, unspecified with coma; K92.1 Melena; T68.XXXA Hypothermia, initial encounter; X31.XXXA Exposure to excessive natural cold, initial encounter; D64.89 Other specified anemias; E87.5 Hyperkalemia; Z20.822 Contact with and (suspected) exposure to COVID-19
CPT/HCPCS: 0202U; 36415; 36556; 71045; 80053; 80320; 81001; 82140; 82550; 82553; 82803; 83605; 83690; 85025; 85610; 85730; 86850; 86900; 86901; 86920; 87040; 87150; 93005; 96361; 96374; 96375; 99285; 99291; P9016; P9040; 81003; 87086